=== PATIENT | male | born 1970 | race Caucasian/White ===

== ENCOUNTER 2020-10-12 06:26 | Day surgery (SDC) | payer OTHER ==
[2020-10-12] MEDS: Sodium Chloride 0.9% 1,000 ML IV SCH (06:56)
[2020-10-12] MEDS ORDERED: fentaNYL 100 MCG/2 ML SDV ONE (07:12)
[2020-10-12] MEDS ORDERED: Midazolam 1 MG/ML 2 ML SDV ONE (07:12)
[2020-10-12] MEDS ORDERED: Propofol 200 MG/20 ML SDV ONE ×2 (07:12→08:06)
--- NOTE | 2020-10-12 12:44 | OR ---
DATE OF PROCEDURE: 10/12/2020 SURGEON: Manolo Richard MD PROCEDURE: Colonoscopy. FINDINGS: 1. Descending colon polyp, approximately 5 mm, completely removed using hot snare wire device. 2. Sigmoid colon polyp, approximately 8 mm, completely removed using endoscopic mucosal resection. COMPLICATIONS: None. DIPLOMATIC COURIER: None. ANESTHESIA: MAC. PREOPERATIVE DIAGNOSIS: Family history of colorectal cancer. POSTOPERATIVE DIAGNOSIS: Family history of colorectal cancer. RISKS: Risks, benefits, alternatives, and limitations including, but not limited to infection, bleeding, perforation, false positives and false negatives were explained to the patient and he wished to proceed. PROCEDURE IN DETAIL: The patient was placed in left lateral decubitus position. Digital rectal exam was performed without abnormality. Scope was introduced and advanced atraumatically to the ileocecal valve. A photo was taken of the appendiceal orifice. Scope was brought back through the ascending, transverse, descending colon, and retroflexed. No evidence of old or new blood. No masses. The first polyp was completely removed without abnormality. No abnormal bleeding was noted. The second polyp was removed by elevating the mucosa using normal saline in 4 quadrants. This was then removed with the snare device. No abnormal bleeding was noted after this. No abnormalities on retroflexion. The prep was acceptable, approximately 90% of the luminal surface could be seen. Greater than 8 minutes was spent removing the scope. The patient tolerated the procedure well. Manolo Richard MD /[id number]
== END 2020-10-12 09:13 | disposition home or self-care (01) ==
LOC: JP.SDS 06:26
PROVIDERS: ATTEND Surgery
DX: Z12.11 Encounter for screening for malignant neoplasm of colon (principal); K63.5 Polyp of colon; F17.200 Nicotine dependence, unspecified, uncomplicated; Z80.0 Family history of malignant neoplasm of digestive organs
CPT/HCPCS: J2250; J2704; J3010; J7030

== ENCOUNTER 2023-01-16 14:22 | Emergency (ER) | payer OTHER | END 2023-01-16 15:04 | disposition left against medical advice (07) | LOC: JP.ED 14:22 | DX: Z53.21 Procedure and treatment not carried out due to patient leaving prior to being seen by health care provider (principal) ==

== ENCOUNTER 2023-02-03 08:39 | Emergency (ER) | payer OTHER | END 2023-02-03 09:16 | disposition home or self-care (01) | LOC: JP.ED 08:39 | DX: M67.442 Ganglion, left hand (principal); Z88.1 Allergy status to other antibiotic agents | CPT/HCPCS: 99282 ==